=== PATIENT | male | born 1965 | race Caucasian/White ===

== ENCOUNTER → 2021-03-01 | Outpatient (CLI) | payer OTHER ==
[2021-03-02 08:14] LABS: RHEUMATOID ARTHRITIS FACTOR <10.0 IU/mL (0.0-13.9)
[2021-03-02 13:14] LABS: ALDOLASE 3.1 U/L (3.3-10.3)
[2021-03-02 14:14] LABS: RNP ANTIBODIES <0.2 AI (0.0-0.9); SJOGREN'S ANTI-SS-A <0.2 AI (0.0-0.9); SJOGREN'S ANTI-SS-B <0.2 AI (0.0-0.9); SMITH ANTIBODIES <0.2 AI (0.0-0.9)
[2021-03-02 16:14] LABS: A/G RATIO 1.3 (0.7-1.7); ALBUMIN 3.7 g/dL (2.9-4.4); ALPHA-1-GLOBULIN 0.2 g/dL (0.0-0.4); ALPHA-2-GLOBULIN 0.9 g/dL (0.4-1.0); BETA GLOBULIN 0.9 g/dL (0.7-1.3); IMMUNOGLOBULIN A, QN, SERUM 261 mg/dL (90-386); IMMUNOGLOBULIN G, QN, SERUM 963 mg/dL (603-1613); IMMUNOGLOBULIN M, QN, SERUM 40 mg/dL (20-172); M-SPIKE Not Observed g/dL (Not Observed); PROTEIN, TOTAL, SERUM 6.7 g/dL (6.0-8.5)
== END ==
LOC: LAB 12:27
PROVIDERS: Internal Medicine
DX: M25.50 Pain in unspecified joint (principal); R89.4 Abnormal immunological findings in specimens from other organs, systems and tissues; E55.9 Vitamin D deficiency, unspecified; M79.2 Neuralgia and neuritis, unspecified
CPT/HCPCS: 36415; 82085; 82550; 82784; 83036; 83520; 83883; 84155; 84165; 84439; 84443; 86038; 86200; 86235; 86334; 86335; 86431

== ENCOUNTER → 2021-06-06 | Outpatient (CLI) | payer OTHER | LOC: CT 09:05 | DX: R10.9 Unspecified abdominal pain (principal); N50.819 Testicular pain, unspecified; R63.4 Abnormal weight loss | CPT/HCPCS: 36415; 82565; 84520; Q9967 ==